=== PATIENT | female | born 1970 | race African-American/Black ===

== ENCOUNTER 2024-04-02 22:01 | Inpatient (IN) | payer BC ==
[2024-04-02] MEDS ORDERED: ALBUTEROL 2.5 MG/3 ML NEB SOL ONE (22:29)
[2024-04-02] MEDS ORDERED: PROMETHAZINE 25 MG TABLET ONE (22:30)
[2024-04-02] MEDS ORDERED: IPRATROPIUM BROM 0.5MG/2.5ML ONE (22:30)
[2024-04-02] MEDS ORDERED: cloNIDine HCL 0.1 MG TAB ONE (22:30)
[2024-04-02] MEDS ORDERED: METHYLPREDNISOLONE 125 MG INJ ONE (22:30)
[2024-04-02] MEDS ORDERED: Magnesium Sulfate 2gm IVPB 2 G/50 ML BAG IV ONE (22:31)
[2024-04-02 22:51] LABS: Absolute Basophils 0.1 K/uL (0-0.5); Absolute Eosinophils 0.8 K/uL (0-0.5); Absolute Lymphocytes (CBC) 1.6 K/uL (0.7-4.9); Absolute Monocytes 0.6 K/uL (0.1-1.3); Absolute Neutrophil 7.7 K/uL (1.8-8.0); Basophils % 0.5 % (0-1.3); Eosinophils % 7.7 % (0-4.4); Hematocrit 33.4 % (36.0-45.0); Hemoglobin 11.2 g/dL (12.0-15.0); Lymphocytes % 15.2 % (15.3-44.8); MCH 27.5 pg (27.0-35.0); MCHC 33.7 g/dL (32.0-36.0); MCV 81.5 fL (80-100); MPV 8.6 fL (7.6-11.3); Monocytes % 5.4 % (3.3-12.3); Neutrophils % 71.2 % (41.7-73.7); Nucleated Red Blood Cells % 0.2 % (0-0); PT Prothrombin Time 9.8 SECONDS (9.4-12.5); Platelets 218 thou/uL (152-406); Protime INR 0.87; RBC Red Blood Cell Count 4.09 M/uL (3.86-4.86)
[2024-04-02] MEDS ORDERED: GUAIFENESIN/DM 5 ML UCUP ONE (23:05)
[2024-04-02 23:25] LABS: ALT/SGPT 20 U/L (13-56); AST/SGOT 19 U/L (15-37); Albumin 3.6 g/dL (3.4-5.0); Albumin/Globulin Ratio 0.9 (1.1-1.8); Alkaline Phosphatase 101 U/L (45-117); Anion Gap 11.4 mEq/L (5.0-15.0); BUN Blood Urea Nitrogen 38 mg/dL (7-18); Bicarbonate 26 mEq/L (21-32); Bilirubin Direct < 0.2 mg/dL (0-0.2); Bilirubin Indirect, Calculated 0.1 mg/dL (0.2-0.8); Bilirubin Total 0.3 mg/dL (0.2-1.0); Globulin 4.2 g/dL (2.3-3.5); Glomerular Filtration Rate 14 ml/min (=/>90); Glucose Level 150 mg/dL (74-106); Lipase 49 U/L (13-75); Magnesium 2.3 mg/dL (1.6-2.4); NT PRO-BNP 459 pg/mL (<125); Potassium 3.4 mEq/L (3.5-5.1); Protein, Total 7.8 g/dL (6.4-8.2); Sodium Level 143 mEq/L (136-145)
[2024-04-02 23:26] LABS: Troponin High Sensitivity 137.7 pg/mL (<58.9)
[2024-04-02] MEDS ORDERED: HEPARIN 5000 UNIT/ML 1 ML VIAL ONE (23:54)
[2024-04-02] MEDS ORDERED: ASPIRIN 81 MG CHEWABLE TABLET ONE (23:54)
[2024-04-02] MEDS ORDERED: HEPARIN/D5W 25,000 UNIT/500 ML BAG IV ONE (23:54)
--- NOTE | 2024-04-03 01:10 | ER ---
Nurse's Notes [facility] Name: Leola Kaur Age: 53 yrs Sex: Female : 1970 Arrival Date: 04/02/2024 Time: 22:01 Bed 2 Private MD: Diagnosis: Moderate persistent asthma with (acute) exacerbation;NSTEMI Presentation: 04/02 22:02 Chief complaint: Patient states: BREATHING DIFFICULTY SINCE THIS MORNING POSSIBLE ha1 ASTHMA ATTACK, HAVE BEEN USING INHALER BUT IT IS NOT HELPING. 22:02 Coronavirus screen: Vaccine status: Patient reports receiving the 1st dose of the Covid ha1 vaccine. Ebola Screen: No symptoms or risks identified at this time. Initial Sepsis Screen: Does the patient meet any 2 criteria? No. Patient's initial sepsis screen is negative. Does the patient have a suspected source of infection? No. Patient's initial sepsis screen is negative. Risk Assessment: Do you want to hurt yourself or someone else? Patient reports no desire to harm self or others. Onset of symptoms was April 02, 2024. 22:02 Method Of Arrival: Wheelchair ha1 22:02 Acuity: WOODY 2 ha1 Triage Assessment: 22:20 General: Appears uncomfortable, Behavior is anxious. Pain: Denies pain. Neuro: Level of ha1 Consciousness is awake, alert, obeys commands, Oriented to person, place, time, situation. Cardiovascular: Patient's skin is warm and dry. Respiratory: Reports shortness of breath Airway is patent Respiratory effort is using tripod position, Respiratory pattern is tachypnea Onset: The symptoms/episode began/occurred this morning, the patient has moderate shortness of breath. Historical: - Allergies: 22:20 Codeine; ha1 - PMHx: 22:20 Hypertensive disorder; Kidney disease; ha1 - PSHx: 22:20 section; ha1 - Immunization history:: Adult Immunizations up to date, Last tetanus immunization: up to date. - Infectious Disease History:: Denies. - Social history:: Smoking status: Patient denies any tobacco usage or history of. - Family history:: not pertinent. Screenin:15 [facility] ED Fall Risk Assessment (Adult) History of falling in the last 3 months, br2 including since admission No falls in past 3 months (0 pts) Confusion or Disorientation No (0 pts) Intoxicated or Sedated No (0 pts) Impaired Gait No (0 pts) Mobility Assist Device Used No (0 pt) Altered Elimination No (0 pt) Score/Fall Risk Level 0 - 2 = Low Risk. Abuse screen: Denies threats or abuse. Denies injuries from another. Nutritional screening: No deficits noted. Tuberculosis screening: No symptoms or risk factors identified. Assessment: 22:15 Reassessment: Patient and/or family updated on plan of care and expected duration. Pain br2 level reassessed. Patient is alert, oriented x 3, equal unlabored respirations, skin warm/dry/pink. General: Appears uncomfortable, Behavior is cooperative, anxious. Pain: Denies pain. Cardiovascular:. Cardiovascular: Capillary refill < 3 seconds Rhythm is sinus rhythm. Respiratory: Reports shortness of breath at rest on exertion cough that is Respiratory effort is labored, Respiratory pattern is regular, symmetrical, Breath sounds with wheezes bilaterally. 04/03 00:01 Reassessment: Patient and/or family updated on plan of care and expected duration. Pain br2 level reassessed. Patient is alert, oriented x 3, equal unlabored respirations, skin warm/dry/pink. Patient states feeling better. Patient states symptoms have improved. 01:58 Reassessment: Patient and/or family updated on plan of care and expected duration. Pain br2 level reassessed. Patient is alert, oriented x 3, equal unlabored respirations, skin warm/dry/pink. Patient states feeling better. Patient states symptoms have improved. Vital Signs: 04/02 22:02 BP 188 / 124; Pulse 98; Resp 24 S; Temp 97.8(T); Pulse Ox 95% on R/A; Weight 104.33 kg; ha1 Height 5 ft. 5 in. ; 23:09 BP 145 / 99; Pulse 91; Resp 26; Pulse Ox 100% on NEB TX; br2 04/03 01:56 BP 132 / 74; Pulse 78; Resp 15; Temp 97.1; Pulse Ox 97% on 2 lpm NC; br2 03:00 BP 158 / 93; Pulse 76; Resp 15; Temp 97.1; Pulse Ox 98% on 2 lpm NC; br2 04/02 22:02 Body Mass Index 38.27 (104.33 kg, 165.1 cm) ha1 [place] Coma Score: 03:44 Eye Response: spontaneous(4). Motor Response: obeys commands(6). Verbal Response: sp4 oriented(5). Total: 15. ED Course: 04/02 22:02 Patient arrived in ED. sb4 22:02 Dayanna Hernandez PA-C is PHCP. sb4 22:02 Demar Lai MD is Attending Physician. sb4 22:03 Selena Wyatt, RN is Primary Nurse. al5 22:15 Demar Lai MD is Attending Physician. sp4 22:15 Missed attempt(s): 20 gauge in right antecubital area. br2 22:15 Patient has correct armband on for positive identification. Bed in low position. Call br2 light in reach. Side rails up X 1. Provided Education on: PLAN OF CARE. 22:20 Triage completed. ha1 22:26 Alessia Marshall, RN is Primary Nurse. br2 22:37 Missed attempt(s): 22 gauge in left antecubital area. Bleeding controlled, band aid al5 applied, catheter tip intact. 22:40 Missed attempt(s): 20 gauge in left antecubital area. Bleeding controlled, band aid al5 applied, catheter tip intact. 22:49 EKG done, by ED staff, reviewed by Demar Lai MD. oe 22:52 Inserted saline lock: 24 gauge in left forearm, using aseptic technique. Flushed with ha1 10 mL NS. 23:09 Missed attempt(s): 22 gauge in right hand. br2 23:14 XRAY Chest (1 view) In Process Unspecified. EDMS 23:40 Inserted saline lock: 24 gauge in right upper arm, using aseptic technique. Flushed ha1 with 10 mL NS. 04/03 01:09 Nima Cortez MD is Hospitalizing Provider. sp4 03:40 No provider procedures requiring assistance completed. ha1 03:40 Patient admitted, IV remains in place. ha1 Administered Medications: 04/02 21:50 Drug: Promethazine PO 25 mg PO once Route: PO; br2 22:30 Follow up: Response: No adverse reaction br2 22:57 Drug: Albuterol Inhalation 2.5 mg Inhalation every 20 minutes x3 Route: Inhalation; br2 23:00 Follow up: Response: No adverse reaction br2 22:57 Drug: MethylPrednisoLONE IVP 125 mg IVP once Route: IVP; Site: left wrist; br2 23:00 Follow up: Response: No adverse reaction br2 22:57 Drug: Magnesium Sulfate IVPB 2 grams IVPB once over 2 hrs Route: IVPB; Infused Over: 2 br2 hrs; Site: left wrist; 04/03 00:00 Follow up: Response: No adverse reaction; IV Status: Completed infusion; IV Intake: br2 100ml 04/02 22:58 Drug: Ipratropium Inhalation Aerosol 0.5 mg Inhalation once; Every 20 min for a total br2 of 3 treatments x3 Route: Inhalation; 22:58 Not Given (B/P145/99i): clonidine0.2 mg PO once br2 23:00 Drug: Dextromethorphan-Guaifenesin PO Liquid 10 mg-100 mg/5 mL 10 ml PO once Route: PO; br2 04/03 00:00 Follow up: Response: No adverse reaction br2 00:14 Drug: Aspirin PO Chewable Tablet 324 mg PO once; 81 mg tablets x 4 Route: PO; br2 01:00 Follow up: Response: No adverse reaction br2 00:14 Drug: Heparin ([place]-Bolus No thrombolytic) - HEParin IVP 60 units/kg IVP once; Max 5000 br2 units {Co-Signature: oj (Amina Blake RN).} Route: IVP; Site: left wrist; 01:00 Follow up: Response: No adverse reaction br2 00:16 Drug: Heparin ([place] Drip) 12 units/kg/[place] - ([place] [address] units, D5W IV 500 ml) IV at br2 calculated rate Per protocol; Max initial rate 1000 units/hr {Co-Signature: oj (Amina Blake RN).} Route: IV; Rate: 1000 units/hr; Site: left wrist; 03:15 Follow up: Response: No adverse reaction; IV Status: Infusion continued; IV Intake: [id number] 01:53 Drug: Diazepam PO 5 mg PO once Route: PO; br2 02:30 Follow up: Response: No adverse reaction; Marked relief of symptoms ha1 04:04 Drug: Ipratropium Inhalation Aerosol 0.5 mg Inhalation once; Every 20 min for a total br2 of 3 treatments x3 Route: Inhalation; Medication: 04/02 22:15 VIS not applicable for this client. br2 Intake: 04/03 00:00 IV: 100ml; Total: 100ml. br2 03:15 IV: 60ml; Total: 160ml. br2 Outcome: 01:10 Decision to Hospitalize by Provider. sp4 03:40 Admitted to Tele accompanied by tech, via stretcher, room 406, with chart, ha1 03:40 Condition: stable 03:40 Instructed on the need for admit, Demonstrated understanding of instructions, 03:50 Patient left the ED. ha1 Signatures: Dispatcher [employer] EDMS Mihir Bai Heidy, RN RN ha1 Dayanna Hernandez PA-C PAVijaya [email or web address] Demar Lai MD MD sp4 Selena Wyatt RN RN al5 Alessia Marshall RN RN br2 Amina Blake RN ha1 Corrections: (The following items were deleted from the chart) 04/02 22:43 22:37 Missed attempt(s): 20 gauge in left antecubital area. Bleeding controlled, band al5 aid applied, catheter tip intact. al5 22:43 22:42 Missed attempt(s): al5 al5 04/03 04:14 04:12 Patient left the ED. ha1 ha1
--- NOTE | 2024-04-03 01:10 | EDPHYS ---
Physician Documentation [facility] Name: Leola Kaur Age: 53 yrs Sex: Female : 1970 Arrival Date: 04/02/2024 Time: 22:01 Bed 2 Private MD: ED Physician Demar Lai HPI: 04/02 22:15 This 53 yrs old Black Female presents to ER via Unassigned with complaints of Breathing sp4 Difficulty. 04/03 03:44 Patient is 53-year-old black female who presents with acute onset shortness of breath sp4 typical of her asthma attack. . Historical: - Allergies: 04/02 22:20 Codeine; ha1 - PMHx: 22:20 Hypertensive disorder; Kidney disease; ha1 - PSHx: 22:20 section; ha1 - Immunization history:: Adult Immunizations up to date, Last tetanus immunization: up to date. - Infectious Disease History:: Denies. - Social history:: Smoking status: Patient denies any tobacco usage or history of. - Family history:: not pertinent. ROS: 04/03 03:44 Constitutional: Negative for fever, chills, and weight loss, positive shortness of sp4 breath All other systems are negative, Exam: 03:44 Constitutional: This is a well developed, well nourished patient who is awake, alert, sp4 and in no acute distress. Head/Face: Normocephalic, atraumatic. Eyes: Pupils equal round and reactive to light, extra-ocular motions intact. Lids and lashes normal. Conjunctiva and sclera are not injected. Cornea within normal limits. Periorbital areas with no swelling, redness, or edema. ENT: Nares patent. No nasal discharge, no septal abnormalities noted. Tympanic membranes are normal and external auditory canals are clear. Oropharynx with no redness, swelling, or masses, exudates, or evidence of obstruction, uvula midline. Mucous membranes moist. Neck: Trachea midline, no thyromegaly or masses palpated, and no cervical lymphadenopathy. Supple, full range of motion without nuchal rigidity, or vertebral point tenderness. Chest/axilla: Normal chest wall appearance and motion. Nontender with no deformity. No lesions are appreciated. Cardiovascular: Regular rate and rhythm with a normal S1 and S2. No gallops, murmurs, or rubs. Normal PMI, no JVD. No pulse deficits. Respiratory: Lungs have equal breath sounds bilaterally, positive expiratory wheezing in all lung [place], moderate respiratory wheezing associated with retractions Abdomen/GI: Soft, with normal bowel sounds. No distension or tympany. No guarding or rebound. No evidence of tenderness throughout. Back: No spinal tenderness. No costovertebral tenderness. Skin: Warm, dry with normal turgor. Normal color with no rashes, no lesions, and no evidence of cellulitis. MS/ Extremity: Pulses equal, no cyanosis. Neurovascular intact. Full, normal range of motion. Neuro: Awake and alert, GCS 15, oriented to person, place, time, and situation. Cranial nerves II-XII grossly intact. Motor strength 5/5 in all extremities. Sensory grossly intact. Psych: Awake, alert, with orientation to person, place and time. Behavior, mood, and affect are within normal limits 03:44 ECG was reviewed by the Attending Physician. EKG at 2245 normal sinus rhythm with sinus arrhythmia rate 80 Vital Signs: 04/02 22:02 BP 188 / 124; Pulse 98; Resp 24 S; Temp 97.8(T); Pulse Ox 95% on R/A; Weight 104.33 kg; ha1 Height 5 ft. 5 in. ; 23:09 BP 145 / 99; Pulse 91; Resp 26; Pulse Ox 100% on NEB TX; br2 04/03 01:56 BP 132 / 74; Pulse 78; Resp 15; Temp 97.1; Pulse Ox 97% on 2 lpm NC; br2 03:00 BP 158 / 93; Pulse 76; Resp 15; Temp 97.1; Pulse Ox 98% on 2 lpm NC; br2 04/02 22:02 Body Mass Index 38.27 (104.33 kg, 165.1 cm) ha1 [place] Coma Score: 03:44 Eye Response: spontaneous(4). Motor Response: obeys commands(6). Verbal Response: sp4 oriented(5). Total: 15. MDM: 04/02 22:02 Medical Screening Exam initiated sb4 04/03 01:11 ED course: EXAM: XR Chest, 1 View CLINICAL HISTORY: The patient is 53 years old and is sp4 Female; SOB TECHNIQUE: Frontal view of the chest. COMPARISON: No relevant prior studies available. FINDINGS: LUNGS: Unremarkable. No consolidation. PLEURAL SPACE: Unremarkable. No pneumothorax. HEART: Unremarkable. No cardiomegaly. MEDIASTINUM: Unremarkable. Normal mediastinal contour. BONES/JOINTS: Unremarkable. No acute fracture. SOFT TISSUES: Surgical clips are present within the soft tissues of the right chest. UPPER ABDOMEN: Unremarkable as visualized. IMPRESSION: No acute cardiopulmonary process.. 03:50 Differential diagnosis: Anxiety Reaction asthma, Bronchitis CHF exacerbation, Chronic sp4 Obstructive Pulmonary Disease Myocardial Infarction. Data reviewed: vital signs, nurses notes, lab test result(s), EKG, radiologic studies, plain films. Consideration of Admission/Observation Patient was admitted/placed on observation. Escalation of care including admission/observation considered. Management of patient was discussed with the following: Hospitalist: Diego WITT. Pocket Setter Lockstitch: Maury WITT . ED course: EXAM: XR Chest, 1 View CLINICAL HISTORY: The patient is 53 years old and is Female; SOB TECHNIQUE: Frontal view of the chest. COMPARISON: No relevant prior studies available. FINDINGS: LUNGS: Unremarkable. No consolidation. PLEURAL SPACE: Unremarkable. No pneumothorax. HEART: Unremarkable. No cardiomegaly. MEDIASTINUM: Unremarkable. Normal mediastinal contour. BONES/JOINTS: Unremarkable. No acute fracture. SOFT TISSUES: Surgical clips are present within the soft tissues of the right chest. UPPER ABDOMEN: Unremarkable as visualized. IMPRESSION: No acute cardiopulmonary process. . ED course: Patient discovered to have elevated troponin confirmed with repeat elevated troponin.. Cardiology consulted. Patient stable for admission for further evaluation for NSTEMI. 04/02 22:02 Order name: Basic Metabolic Panel; Complete Time: 23:27 sb4 04/02 22:02 Order name: CBC with Diff; Complete Time: 23:26 sb4 04/02 22:02 Order name: LFT's; Complete Time: 23:27 sb4 04/02 22:02 Order name: Magnesium; Complete Time: 23:27 sb4 04/02 22:02 Order name: NT PRO-BNP; Complete Time: 23:27 sb4 04/02 22:02 Order name: Troponin HS; Complete Time: 23:27 sb4 04/02 22:16 Order name: PT-INR; Complete Time: 23:26 sp4 04/02 22:44 Order name: T4 Free; Complete Time: 23:27 EDMS 04/02 22:44 Order name: Thyroid Stimulating Hormone; Complete Time: 23:27 EDMS 04/02 22:45 Order name: Lipase; Complete Time: 23:27 EDMS 04/03 00:46 Order name: Troponin High Sensitivity; Complete Time: 01:56 sp4 04/03 02:01 Order name: Urinalysis w/ reflexes [facility] 04/03 02:01 Order name: Lipid Profile [facility] 04/03 02:01 Order name: Lipid Profile [facility] 04/03 02:01 Order name: Troponin High Sensitivity [facility] 04/03 02:01 Order name: Troponin High Sensitivity [facility] 04/03 02:01 Order name: Troponin High Sensitivity [facility] 04/03 02:01 Order name: Troponin High Sensitivity [facility] 04/03 02:01 Order name: CBC with Automated Diff [facility] 04/03 02:01 Order name: Comprehensive Metabolic Panel [facility] 04/03 02:01 Order name: Creatine Phosphokinase [facility] 04/03 02:01 Order name: Magnesium [facility] 04/03 02:01 Order name: NT PRO-BNP [facility] 04/03 02:01 Order name: Phosphorus [facility] 04/02 22:02 Order name: XRAY Chest (1 view) [facility] 04/03 02:01 Order name: RC INCENTIVE SPIROMETRY [facility] 04/03 02:03 Order name: Echo with Doppler [facility] 04/02 22:16 Order name: EKG; Complete Time: 22:17 sp4 04/03 00:46 Order name: EKG; Complete Time: 00:47 sp4 04/03 02:01 Order name: CONS Physician Consult [facility] 04/03 02:01 Order name: Respiratory Therapy Consult [facility] 04/02 22:16 Order name: Cardiac monitoring; Complete Time: 22:52 sp4 04/02 22:16 Order name: EKG - Nurse/Tech; Complete Time: 22:52 sp4 04/02 22:16 Order name: IV Saline Lock; Complete Time: 22:52 sp4 04/02 22:16 Order name: Labs collected and sent; Complete Time: 22:52 sp4 04/02 22:16 Order name: O2 Per Protocol; Complete Time: 22:52 sp4 04/02 22:16 Order name: O2 Sat Monitoring; Complete Time: 22:52 sp4 EC/28 22:45 Rate is 80 beats/min. Rhythm is regular, Normal Sinus Rhythm. QRS [place] is Normal. TN sp4 interval is normal. QRS interval is normal. QT interval is normal. No Q waves. T waves are Normal. No ST changes noted. Clinical impression: No evidence of ischemia. Interpreted by me. Reviewed by me. Administered Medications: 21:50 Drug: Promethazine PO 25 mg PO once Route: PO; br2 22:30 Follow up: Response: No adverse reaction br2 22:57 Drug: Albuterol Inhalation 2.5 mg Inhalation every 20 minutes x3 Route: Inhalation; br2 23:00 Follow up: Response: No adverse reaction br2 22:57 Drug: MethylPrednisoLONE IVP 125 mg IVP once Route: IVP; Site: left wrist; br2 23:00 Follow up: Response: No adverse reaction br2 22:57 Drug: Magnesium Sulfate IVPB 2 grams IVPB once over 2 hrs Route: IVPB; Infused Over: 2 br2 hrs; Site: left wrist; 04/03 00:00 Follow up: Response: No adverse reaction; IV Status: Completed infusion; IV Intake: br2 100ml 04/02 22:58 Drug: Ipratropium Inhalation Aerosol 0.5 mg Inhalation once; Every 20 min for a total br2 of 3 treatments x3 Route: Inhalation; 22:58 Not Given (B/P145/99i): clonidine0.2 mg PO once br2 23:00 Drug: Dextromethorphan-Guaifenesin PO Liquid 10 mg-100 mg/5 mL 10 ml PO once Route: PO; br2 04/03 00:00 Follow up: Response: No adverse reaction br2 00:14 Drug: Aspirin PO Chewable Tablet 324 mg PO once; 81 mg tablets x 4 Route: PO; br2 01:00 Follow up: Response: No adverse reaction br2 00:14 Drug: Heparin ([place]-Bolus No thrombolytic) - HEParin IVP 60 units/kg IVP once; Max 5000 br2 units {Co-Signature: oj (Amina Blake RN).} Route: IVP; Site: left wrist; 01:00 Follow up: Response: No adverse reaction br2 00:16 Drug: Heparin ([place] Drip) 12 units/kg/[place] - ([place] [address] units, D5W IV 500 ml) IV at br2 calculated rate Per protocol; Max initial rate 1000 units/hr {Co-Signature: ha1 (Blake, Amina RN).} Route: IV; Rate: 1000 units/hr; Site: left wrist; 03:15 Follow up: Response: No adverse reaction; IV Status: Infusion continued; IV Intake: [id number] 01:53 Drug: Diazepam PO 5 mg PO once Route: PO; br2 02:30 Follow up: Response: No adverse reaction; Marked relief of symptoms ha1 04:04 Drug: Ipratropium Inhalation Aerosol 0.5 mg Inhalation once; Every 20 min for a total br2 of 3 treatments x3 Route: Inhalation; Disposition Summary: 04/03/24 01:10 Hospitalization Ordered Notes: Hospitalization Status: Inpatient Admission sp4 Provider: Nima Cortez sp4 Location: Telemetry/MedSurg (Inpatient) sp4 Condition: Stable sp4 Problem: new sp4 Symptoms: have improved sp4 Bed/Room Type: Standard sp4 Room Assignment: 406(04/03/24 02:05) kl Diagnosis - Moderate persistent asthma with (acute) exacerbation sp4 - NSTEMI sp4 Forms: - Medication Reconciliation Form sp4 - SBAR form sp4 - Leadership Thank You Letter sp4 Signatures: Dispatcher [employer] Tasha Griffin RN RN kl Amina Blake RN RN ha1 Dayanna Hernandez PA-C PALianC sb4 Demar Lai MD MD sp4 Alessia Marshall RN RN br2 Amina Blake RN ha1 Corrections: (The following items were deleted from the chart) 04/02 22:03 22:03 BASIC METABOLIC PANEL+C.LAB.BRZ ordered. EDMS EDMS 22:03 22:03 CBC+H.LAB.BRZ ordered. EDMS EDMS 22:03 22:03 HEPATIC FUNCTION+C.LAB.BRZ ordered. EDMS EDMS 22:03 22:03 MAGNESIUM+C.LAB.BRZ ordered. EDMS EDMS 22:03 22:03 PROBNP+C.LAB.BRZ ordered. EDMS EDMS 22:03 22:03 Troponin High Sensitivity+C.LAB.BRZ ordered. EDMS EDMS 22:03 22:03 Chest Single View+RAD.RAD.BRZ ordered. EDMS EDMS 22:04 22:02 Cardiac monitoring ordered. sb4 sb4 22:04 22:02 IV Saline Lock ordered. sb4 sb4 22:05 22:02 EKG - Nurse/Tech ordered. sb4 sb4 22:05 22:02 Labs collected and sent ordered. sb4 sb4 22:05 22:02 Oxygen Per Protocol ordered. sb4 sb4 22:05 22:02 O2 Sat Monitoring ordered. sb4 sb4 22:36 22:03 D-DIMER+COAG.LAB.BRZ ordered. EDMS EDMS 22:36 22:03 PROTIME (+INR)+COAG.LAB.BRZ ordered. EDMS EDMS 22:44 22:16 BASIC METABOLIC PANEL+C.LAB.BRZ ordered. EDMS EDMS 22:44 22:16 CBC+H.LAB.BRZ ordered. EDMS EDMS 22:44 22:16 HEPATIC FUNCTION+C.LAB.BRZ ordered. EDMS EDMS 22:44 22:16 PROBNP+C.LAB.BRZ ordered. EDMS EDMS 22:44 22:16 Troponin High Sensitivity+C.LAB.BRZ ordered. EDMS EDMS 22:44 22:22 T4 FREE+C.LAB.BRZ ordered. EDMS EDMS 22:44 22:22 THYROID STIMULAT HORMONE+C.LAB.BRZ ordered. EDMS EDMS 22:45 22:16 LIPASE+C.LAB.BRZ ordered. EDMS EDMS 22:45 22:16 MAGNESIUM+C.LAB.BRZ ordered. EDMS EDMS 04/03 02:05 01:10 sp4 kl
--- NOTE | 2024-04-03 01:20 | RAD REPORT ---
EXAM: XR Chest, 1 View CLINICAL HISTORY: The patient is 53 years old and is Female; SOB TECHNIQUE: Frontal view of the chest. COMPARISON: No relevant prior studies available. FINDINGS: LUNGS: Unremarkable. No consolidation. PLEURAL SPACE: Unremarkable. No pneumothorax. HEART: Unremarkable. No cardiomegaly. MEDIASTINUM: Unremarkable. Normal mediastinal contour. BONES/JOINTS: Unremarkable. No acute fracture. SOFT TISSUES: Surgical clips are present within the soft tissues of the right chest. UPPER ABDOMEN: Unremarkable as visualized. IMPRESSION: No acute cardiopulmonary process. Electronically signed by: Lavonne Dutton MD 04/02/2024 11:32 PM [facility] Due to temporary technical issues with the [employer]ACS[employer] reporting system, reports are being jacinta d by the in-house radiologist without review as a courtesy to ensure prompt reporting the interpreting radiologist is fully responsible for the content of the report. Transcribed Date/Time: 04/03/2024 1:19 AM
[2024-04-03] MEDS ORDERED: DIAZEPAM 5 MG TABLET ONE (01:51)
[2024-04-03] MEDS ORDERED: ACETAMINOPHEN 325 MG TABLET PO PRN (01:53)
[2024-04-03] MEDS: METOPROLOL TARTRATE 5 MG/5 ML INJ IV STA (02:01)
--- NOTE | 2024-04-03 02:08 | P.HP ---
Certification for Inpatient With expected LOS: <2 Midnights Practitioner: I am a practitioner with admitting privileges, knowledge of patient current condition, hospital course, and medical plan of care. Services: Services provided to patient in accordance with Admission requirements found in Title 42 Section 412.3 of the Code of Federal Regulations Patient History Date of Service: 04/03/24 Reason for admission: asthma exacerbation, elevated troponin History of Present Illness: 53-year-old woman with a past medical history significant for HTN and CKD presented to the emergency department complaining of breathing difficulty x 2 days. The patient has a history of asthma exacerbations, and reports her last exacerbation was last month. The patient states that she has never been admitted to ICU for asthma exacerbations. The patient is a never smoker. She states she has been using her albuterol inhaler more as of late, and today felt shortness of breath at rest. The patient states nothing worsens her dyspnea. Upon arrival to the ED, the patient was found to have an elevated troponin, and elevated BNP. She denies fever, cough, and urinary symptoms. Allergies codeine Allergy (Verified 04/03/24 01:53) Itching/Hives/Rash - Past Medical/Surgical History Diabetic: No -: asthma -: HTN -: CKD -: - Family History Family History: Reviewed- Non-Contributory - Social History Smoking Status: Never smoker Alcohol use: Yes Review of Systems Respiratory: Shortness of Breath, SOB with Excertion Physical Examination - Vital Signs Temperature: 97.8 F Blood Pressure: 168/112 Pulse: 92 Respirations: 18 Pulse Ox (%): 96 (nasal cannula) - Physical Exam General: Alert, In no apparent distress, Oriented x3 HEENT: Atraumatic, Normocephalic Neck: JVD not distended Respiratory: Expiratory wheezes (b/l lungs) Cardiovascular: No edema, Regular rate/rhythm, No gallops, No rubs, No murmurs Gastrointestinal: Normal bowel sounds, Non-distended Musculoskeletal: No swelling, No erythema, No tenderness, No warmth Neurological: Normal strength at 5/5 x4 extr, Sensation intact - Studies Laboratory Data (last 24 hrs) 04/02/24 04/02/24 04/02/24 22:22 22:22 22:22 WBC 10.80 Hgb 11.2 L Hct 33.4 L Plt Count 218 PT 9.8 INR 0.87 Sodium 143 Potassium 3.4 L BUN 38 H Creatinine 3.63 H Glucose 150 H Magnesium 2.3 Total Bilirubin 0.3 AST 19 ALT 20 Alkaline Phosphatase 101 Lipase 49 04/02/24 04/02/24 04/02/24 22:16 22:16 22:02 WBC Cancelled Hgb Cancelled Hct Cancelled Plt Count Cancelled PT Cancelled INR Cancelled Sodium Cancelled Potassium Cancelled BUN Cancelled Creatinine Cancelled Glucose Cancelled Magnesium Cancelled Total Bilirubin Cancelled AST Cancelled ALT Cancelled Alkaline Phosphatase Cancelled Lipase Cancelled Assessment and Plan - Problems (Diagnosis) (1) Asthma exacerbation Current Visit: Yes Status: Acute (2) HTN (hypertension) Current Visit: Yes Status: Acute (3) CKD (chronic kidney disease) Current Visit: Yes Status: Acute (4) Elevated troponin Current Visit: Yes Status: Acute - Plan Asthma exacerbation: Admit to floor DuoNebs as needed Respiratory therapy consulted Spirometry ordered Continue with oxygen via nasal cannula Solu-Medrol 60 q6 ordered CXR field no acute abnormality, no consolidation Given breathing treatment x 3, Magnesium, Solu-Medrol 125, Phenergan, cough liquid, ASA, and heparin drip in ED Elevated troponin: Cardiology consulted Echocardiogram ordered Will continue to trend troponin Started on heparin drip in ED Hypertension: Given metoprolol tart 5 x 1 in ED Resume home medication (carvedilol, amlodipine, olmesartan, hydralazine) CKD: Will continue to monitor - Advance Directives Does patient have a Living Will: No Does patient have a Durable POA for Healthcare: No
[2024-04-03] MEDS ORDERED: METOPROLOL TARTRATE 5 MG/5 ML INJ IV ONE (02:29)
[2024-04-03 04:17] VITALS: BMI 40.0
[2024-04-03] MEDS: METHYLPREDNISOLONE 125 MG INJ IV SCH (05:14)
[2024-04-03] MEDS: carvediloL 25 MG TAB PO SCH (05:14)
[2024-04-03 06:16] LABS: Absolute Basophils 0.1 K/uL (0-0.5); Absolute Lymphocytes (CBC) 0.8 K/uL (0.7-4.9); Absolute Monocytes 0.1 K/uL (0.1-1.3); Absolute Neutrophil 7.3 K/uL (1.8-8.0); Eosinophils % 0.3 % (0-4.4); Hematocrit 32.8 % (36.0-45.0); Hemoglobin 10.7 g/dL (12.0-15.0); Lymphocytes % 9.3 % (15.3-44.8); MCH 27.1 pg (27.0-35.0); MCHC 32.6 g/dL (32.0-36.0); MCV 83.2 fL (80-100); MPV 9.5 fL (7.6-11.3); Monocytes % 0.7 % (3.3-12.3); Neutrophils % 88.7 % (41.7-73.7); Platelets 239 thou/uL (152-406); RBC Red Blood Cell Count 3.94 M/uL (3.86-4.86); Red Cell Distribution Width 15.4 % (12.1-15.2)
[2024-04-03 06:39] LABS: Albumin 3.3 g/dL (3.4-5.0); Albumin/Globulin Ratio 0.8 (1.1-1.8); Anion Gap 11.5 mEq/L (5.0-15.0); Bilirubin Total 0.3 mg/dL (0.2-1.0); Globulin 4.1 g/dL (2.3-3.5); Magnesium 2.8 mg/dL (1.6-2.4); Phosphorus 2.7 mg/dL (2.5-4.9); Potassium 3.5 mEq/L (3.5-5.1); Protein, Total 7.4 g/dL (6.4-8.2)
[2024-04-03] MEDS ORDERED: HEPARIN/D5W 25,000 UNIT/500 ML BAG IV SCH (08:00)
[2024-04-03] MEDS: AMLODIPINE 10 MG TAB PO SCH (08:37)
[2024-04-03] MEDS: POTASSIUM CL SA 10 MEQ TAB PO ONE (08:37)
[2024-04-03] MEDS: VALSARTAN 160 MG TAB PO SCH (08:37)
[2024-04-03] MEDS: ALBUTEROL 2.5 MG/3 ML NEB SOL NEB PRN (09:10)
[2024-04-03] MEDS: IPRATROPIUM BROM 0.5MG/2.5ML NEB SCH (09:10)
[2024-04-03 09:20] LABS: Blood Morphology Comment NOT SEEN (NOT SEEN); Platelet Estimate ADEQ; White Blood Cell Scan OK (OK)
--- NOTE | 2024-04-03 10:05 | CON ---
Date of Consultation: 04/03/2024 Reason For Consultation: Elevated troponin. History Of Present Illness: 53-year-old female, past medical history of hypertension, chronic kidney disease due to hypertension, asthma, that is pretty significant, presented with shortness of breath and wheezing. She claimed every time weather changes makes it harder for her to breathe. She is den janak having any chest pain. No known history of coronary artery disease or cardiac disease and she i s down here visiting from [place], completely asymptomatic, this morning. Past Medical History: As outlined above in the HPI. Medications: Refer to reconciliation sheet for detailed list. Allergies: CODEINE. Family History: No premature coronary artery disease or cancer. Social History: She does not smoke or drink. Does not use any drugs. Review of Systems: All systems were reviewed and they were negative except as mentioned in the HPI. Physical Examination: Vital Signs: Reviewed. Head and Neck: Pupils are equal, reactive to light. Intact eye movements. No JVD. No cervical lym phadenopathy. Neck is supple. Thyroid is not enlarged. Lungs: Decreased breathing sounds. No accessory muscle use or muscle retraction. Has scattered whe ezing. No rhonchi. Heart: Regular rate and rhythm. No extra sounds. Abdomen: Soft, nontender. Bowel sounds positive. No organomegaly. No masses or hernia. No rigidi ty or rebound. Extremities: No edema, clubbing, or cyanosis. Intact pulses. Skin: No rash. No nodules. Neurologic: Alert, awake, oriented x3. No acute focal deficits appreciated. Investigations: BUN 41, creatinine 3.7. Troponin 137 and then 142. Hemoglobin is 10.7. Assessment And Recommendations: 1.Elevated troponin. No chest pain, in the setting of asthma exacerbation condition. This is deman d ischemia. I advised her postdischarge to see a stacker tender to get a stress test and an echo as an outpatient. 2.Asthma exacerbation. Doing very well with the current regimen. Continue current management. 3.Hypertension. Blood pressure is acceptable. Continue current therapy. 4.Advanced kidney failure, being monitored by Nephrology. SR/MODL Voice ID: [id number] Report ID: [id number]
[2024-04-03 10:50] VITALS: O2SAT 96
--- NOTE | 2024-04-03 10:54 | P.DS ---
Admission Date: 04/03/24 Discharge Date: 04/03/24 Disposition: ROUTINE DISCHARGE Discharge Condition: FAIR Reason for Admission: asthma exacerbation, elevated troponin - Problems (1) Asthma exacerbation Status: Acute (2) CKD (chronic kidney disease) Status: Acute (3) Elevated troponin Status: Acute (4) HTN (hypertension) Status: Acute Brief History of Present Illness: 53-year-old woman with a past medical history significant for HTN and CKD presented to the emergency department complaining of breathing difficulty x 2 days. The patient has a history of asthma exacerbations, and reports her last exacerbation was last month. The patient is a never smoker. She states she used her albuterol inhaler without much help. The patient was found to have an elevated troponin, and elevated BNP in the ED. Chest x-ray showed no acute disease. Patient was still short of breath after treatment in the ED and she was admitted for further management. Hospital Course: Patient hospitalized and treated with bronchodilators and IV steroids. Her troponin trended flat. Patient was briefly treated with heparin drip. She was seen and evaluated by cardiology Dr. Mendiola. Elevated troponin considered to be secondary to demand ischemia. Patient is visiting from [place] and planning to go back right after discharge. Dr. Mendiola recommended to patient to follow-up with her cooler tender for outpatient echocardiogram and stress test. Patient shortness of breath have resolved, states she feels much better and requested to be discharged. She is tolerating room air with good oxygen saturation both at rest and with ambulation, vitals are stable. Patient is deemed stable for discharge. Vital Signs/Physical Exam: Temp Pulse Resp BP Pulse Ox 97.6 F 81 20 143/86 H 98 04/03/24 08:00 04/03/24 08:37 04/03/24 08:00 04/03/24 08:37 04/03/24 08:00 General: Alert, In no apparent distress, Oriented x3 HEENT: Mucous membr. moist/pink Neck: Supple, JVD not distended Respiratory: Clear to auscultation bilaterally, Normal air movement Cardiovascular: No edema, Regular rate/rhythm, Normal S1 S2 Gastrointestinal: Normal bowel sounds, Soft and benign, Non-distended, No tenderness Musculoskeletal: No swelling, No tenderness Integumentary: No rashes, No cyanosis Neurological: Normal strength at 5/5 x4 extr, Cranial nerves 3-12 intact Laboratory Data at Discharge: WBC 8.20 thou/uL (4.3-10.9) 04/03/24 05:15 Hgb 10.7 g/dL (12.0-15.0) L 04/03/24 05:15 Hct 32.8 % (36.0-45.0) L 04/03/24 05:15 Plt Count 239 thou/uL (152-406) 04/03/24 05:15 PT 9.8 SECONDS (9.4-12.5) 04/02/24 22:22 INR 0.87 04/02/24 22:22 APTT 97.7 SECONDS (24.3-36.9) H 04/03/24 05:15 Sodium 143 mEq/L (136-145) 04/03/24 05:15 Potassium 3.5 mEq/L (3.5-5.1) 04/03/24 05:15 BUN 41 mg/dL (7-18) H 04/03/24 05:15 Creatinine 3.76 mg/dL (0.55-1.02) H 04/03/24 05:15 Glucose 175 mg/dL (74-106) H 04/03/24 05:15 Phosphorus 2.7 mg/dL (2.5-4.9) 04/03/24 05:15 Magnesium 2.8 mg/dL (1.6-2.4) H 04/03/24 05:15 Total Bilirubin 0.3 mg/dL (0.2-1.0) 04/03/24 05:15 AST 16 U/L (15-37) 04/03/24 05:15 ALT 18 U/L (13-56) 04/03/24 05:15 Alkaline Phosphatase 94 U/L (45-117) 04/03/24 05:15 Lipase 49 U/L (13-75) 04/02/24 22:22 Home Medications: Albuterol Sulfate [Albuterol Sulfate Hfa] 8.5 gm IH Q4H PRN #1 inh 04/03/24 Amlodipine [Norvasc*] 10 mg PO DAILY tab 04/03/24 Aspirin [Aspirin EC 81 MG] 81 mg PO DAILY #30 tab 04/03/24 Valsartan [Diovan*] 160 mg PO DAILY tab 04/03/24 carvediloL [Coreg*] 25 mg PO [id number] tab 04/03/24 predniSONE [Deltasone] 40 mg PO DAILY #6 tab 04/03/24 New Medications: Albuterol Sulfate [Albuterol Sulfate Hfa] 8.5 gm IH Q4H PRN #1 inh PRN Reason: Wheezing Aspirin [Aspirin EC 81 MG] 81 mg PO DAILY #30 tab predniSONE [Deltasone] 40 mg PO DAILY #6 tab Physician Discharge Instructions: You will need to follow up with a Local Scientific Director for Echocardiogram and a stress test. Diet: AHA Activity: Ad nish Followup: MAT RIVERO [Primary Care Provider] - 1 Week Time spent managing pt's care (in minutes): 33
[2024-04-03 12:04] VITALS: BP 174/85; TEMP 98.1
--- NOTE | 2024-04-05 14:16 | EKG ---
Test Date: 2024-04-03 Test Time: 00:54:34 Support Assistant: AF MEASUREMENT RESULTS: Intervals: Rate: 87 PA: 184 QRSD: 94 QT: 408 QTc: 490 Arnot: P: 75 PA: 184 QRS: -46 T: 56 INTERPRETIVE STATEMENTS: Normal sinus rhythm Left anterior fascicular block Prolonged QT Abnormal ECG Compared to ECG 04/02/2024 22:45:17 Left anterior fascicular block now present Prolonged QT interval now present Sinus arrhythmia no longer present Electronically Signed On 04-05-24 14:14:03 COVERED BUTTON MAKER by Feliz Mendiola
--- NOTE | 2024-04-05 14:16 | EKG ---
Test Date: 2024-04-02 Test Time: 22:45:17 Drums Teacher: ANNE MEASUREMENT RESULTS: Intervals: Rate: 80 WY: 186 QRSD: 106 QT: 408 QTc: 470 [place]: P: 72 WY: 186 QRS: -14 T: 60 INTERPRETIVE STATEMENTS: Normal sinus rhythm with sinus arrhythmia Normal ECG No previous ECG available for comparison Electronically Signed On 04-05-24 14:14:07 ENGRAVER [employer]ATWARE by Feliz Mendiola
== END 2024-04-03 12:59 | disposition home or self-care (01) | DRG 202 ==
LOC: ER 22:01 → 4TH 04-03 01:53
PROVIDERS: ADMIT Internal Medicine; ATTEND Internal Medicine
DX: J45.41 Moderate persistent asthma with (acute) exacerbation (principal); I24.89 Other forms of acute ischemic heart disease; I12.9 Hypertensive chronic kidney disease with stage 1 through stage 4 chronic kidney disease, or unspecified chronic kidney disease; N18.9 Chronic kidney disease, unspecified; Z88.5 Allergy status to narcotic agent; Z79.82 Long term (current) use of aspirin; Z79.52 Long term (current) use of systemic steroids; Z79.02 Long term (current) use of antithrombotics/antiplatelets; Z79.899 Other long term (current) drug therapy
CPT/HCPCS: 36415; 71045; 80048; 80053; 80061; 80076; 82550; 83690; 83735; 83880; 84100; 84439; 84443; 84484; 85025; 85610; 85730; 93005; 94640; 94760; 96365; 96366; 96367; 96375; 99285; J1644; J2919; J3475; J7613; J7644; Q0169